=== PATIENT | male | born 2000 | race Caucasian/White ===

== ENCOUNTER 2021-01-25 20:21 | Emergency (ER) | payer SELFPAY ==
[~2021-01-25] VITALS: Ht 172.7 cm; Wt 61.2 kg
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
--- NOTE | 2021-01-25 20:42 | NUR ---
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
[2021-01-25 20:55] LABS: BASOPHILS # (AUTO) 0.2 K/uL (0.0-0.2); BASOPHILS % (AUTO) 1.5 % (0.0-2.0); HEMATOCRIT 47 % (39-51); LYMPHOCYTES # (AUTO) 3.4 K/uL (0.8-4.8); LYMPHOCYTES % (AUTO) 26.7 % (20.0-44.0); MEAN CORPUSCULAR HGB CONC 34 g/dl (31.0-36.0); MEAN CORPUSCULAR VOLUME 92 fL (80-96); MONOCYTES # (AUTO) 0.7 K/uL (0.1-1.30); MONOCYTES % (AUTO) 5.4 % (2.0-12.0); NEUTROPHILS # (AUTO) 8.3 K/uL (1.8-8.9); NEUTROPHILS % (AUTO) 65.4 % (43.0-81.0); PLATELET COUNT (AUTO) 318 K/uL (150-450); RED BLOOD CELL COUNT(AUTO) 5.06 MIL/uL (4.5-6.0); WHITE BLOOD COUNT (AUTO) 12.6 K/uL (4.3-11.0)
--- NOTE | 2021-01-25 20:59 | NUR ---
BS 107
--- NOTE | 2021-01-25 21:00 | NUR ---
PT TAKEN TO CT VIA [facility]
[2021-01-25 21:09] LABS: CALCIUM, SERUM 8.8 mg/dL (8.5-10.1); CARBON DIOXIDE 23 mmol/L (21-32); CHLORIDE 104 mmol/L (98-107); CREATININE 0.9 mg/dL (0.6-1.3); GLUCOSE 92 mg/dL (74-106); POTASSIUM 3.8 mmol/L (3.5-5.1); SODIUM SERUM 141 mmol/L (136-145); UREA NITROGEN, BLOOD 19 mg/dL (7-18)
[2021-01-25 21:15] LABS: ALANINE AMINOTRANSFERASE 42 U/L (12-78); ALBUMIN 4.2 g/dL (3.4-5.0); ALKALINE PHOSPHATASE 55 U/L (46-116); ASPARTATE AMINOTRANSFERASE 20 U/L (15-37); BILIRUBIN,DIRECT 0.1 mg/dL (0.0-0.2); BILIRUBIN,TOTAL 0.4 mg/dL (0.2-1.0); TOTAL PROTEIN, SERUM 7.8 g/dL (6.4-8.2)
--- NOTE | 2021-01-25 21:18 | NUR ---
PER RADIOLOGY, PT UNCOOPERATIVE IN CT. UNABLE TO PERFORM CT. MD AWARE
[2021-01-25] MEDS ORDERED: HALOPERIDOL LACTATE INJ 5 MG/ML VIAL ONE (21:31)
[2021-01-25] MEDS ORDERED: diphenhydrAMINE HCL 50 MG/ML VIAL ONE (21:31)
[2021-01-25] MEDS ORDERED: HALOPERIDOL LACTATE INJ 5 MG/ML VIAL IM ONE (22:30)
[2021-01-25] MEDS ORDERED: diphenhydrAMINE HCL 50 MG/ML VIAL IM ONE (22:30)
--- NOTE | 2021-01-25 23:13 | NUR ---
URINE COLLECTED AND SENT TO LAB
--- NOTE | 2021-01-26 01:11 | NUR ---
Patient is resting comfortably in bed with eyes closed. Easily aroused. VSS
--- NOTE | 2021-01-26 01:58 | NUR ---
Patient discharged to home in stable condition. Written and verbal after care instructions given. Patient verbalizes understanding of instruction. Pt escorted by [employer] in custody.
[2021-01-26 02:46] VITALS: BP 114/64
== END 2021-01-26 02:46 | disposition home or self-care (01) ==
LOC: ER 20:30
DX: S01.01XA Laceration without foreign body of scalp, initial encounter (principal); F10.129 Alcohol abuse with intoxication, unspecified; R45.6 Violent behavior; R94.31 Abnormal electrocardiogram [ECG] [EKG]; Z59.00 Homelessness unspecified; Y90.9 Presence of alcohol in blood, level not specified; W19.XXXA Unspecified fall, initial encounter; Y93.89 Activity, other specified; Y92.89 Other specified places as the place of occurrence of the external cause; Y99.8 Other external cause status
CPT/HCPCS: 36415; 70450; 72125; 80048; 80076; 80307; 80320; 82962; 84484 ×2; 85025; 85730; 93005; 96372 ×2; 99291; A6403; J1200; J1630; G0480